=== PATIENT | male | born 1970 | race Caucasian/White ===

== ENCOUNTER 2019-02-24 13:14 | Observation (INO) ==
[2019-02-24 13:45] LABS: Basophils # (auto) 0.01 K/uL (0-0.2); Basophils % (auto) 0.1 %; Eosinophils # (auto) 0.02 K/uL (0-0.5); Eosinophils % (auto) 0.2 %; Hematocrit (blood only) 40.9 % (42-52); Hemoglobin 14.8 g/dL (14.0-18.0); Immature Granulocytes # (auto) 0.04 K/uL (0.00-0.02); Immature Granulocytes % (auto) 0.5 %; Lymphocytes # (auto) 1.29 K/uL (1.2-3.4); Lymphocytes % (auto) 14.9 %; Mean Corpuscular Hgb Conc 36.2 g/dL (32-36); Mean Platelet Volume 10.8 fL (7.4-10.4); Monocytes # (auto) 0.56 K/uL (0.11-0.59); Monocytes % (auto) 6.5 %; Neutrophils # (auto) 6.75 K/uL (1.4-6.5); Neutrophils % (auto) 77.8 %; Platelet Count 150 K/uL (130-400); RDW Coefficient of Variation 13.8 % (11.5-14.5); RDW Standard Deviation 43.5 fL (36.4-46.3); White Blood Count 8.67 K/uL (4.8-10.8)
--- NOTE | 2019-02-24 14:06 | XRay Report ---
XR chest 1V portable HISTORY: Atypical Chest Pain COMPARISON: None. FINDINGS: The cardiac silhouette is mildly enlarged. No pleural effusions. No pneumothorax. Slightly elevated interstitial without focal consolidations to suggest pneumonia. No evidence for pulmonary ed payton. IMPRESSION: Mild cardiomegaly. Electronically signed by: Jay Colon M.D. 02/24/2019 2:05 PM
[2019-02-24 14:14] LABS: Alanine Aminotransferase 26 U/L (12-78); Albumin Level 4.2 gm/dl (3.4-5.0); Aspartate Aminotransferase 18 U/L (15-37); BUN Creatinine Ratio 12.8 (10-20); Blood Urea Nitrogen 12 mg/dl (7-18); Calcium 8.4 mg/dl (8.5-10.1); Carbon Dioxide 25 mmol/L (21-32); Chloride 109 mmol/L (98-107); Creatinine Clr Calc Pharmacy 89.9 ml/min; Est GFR (African American) 109.4; Est GFR (Non-African American) 94.4; Glucose 159 mg/dl (70-99); Potassium 3.9 mmol/L (3.5-5.1); Sodium 141 mmol/L (136-145)
[2019-02-24 14:25] LABS: Albumin Globulin Ratio 1.4 (0.9-2); Alkaline Phosphatase 95 U/L (45-117); Bilirubin,Total 0.6 mg/dl (0.2-1); Total Protein 7.2 gm/dl (6.4-8.2); Troponin I < 0.015 ng/ml (0-0.045)
--- NOTE | 2019-02-24 15:46 | History & Physical Report ---
Date of Service February 24, 2019 Assessment & Plan (1) Atrial fibrillation: Patient is dizziness was found to be in atrial fibrillation controlled ventricular rate. His youth and lack of health problems does not place him as significant Aris vas risk score. We will bring him into the hospital monitored setting check a urine tox screen echocardiogram for structural cardiac abnormalities check a few troponins when this evening went in the morning and have PRN metoprolol available for rate control. We will check a d-dimer if elevated will perform a CT angiogram to rule out pulmonary embolism giving his pleuritic chest pain Urine tox screen is pending (2) Abnormal EKG: Patient is abnormal EKG could be related to his atrial fibrillation we will trend troponins and get an echo as mentioned (3) Hypothyroidism: Patient be maintained on his Synthroid dose TSH is in normal range (4) DVT prophylaxis: Lovenox will be used History of Present Illness Primary Care Provider: ROMAN Romo 48-year-old incarcerated prisoner who presents with feelings of dizziness and lightheadedness and was found to have atrial fibrillation with controlled ventricular response which converted spontaneously converted in the emergency department. Patient says over the last few days he had intermittent bouts of this dizzy feeling lasting 10 to 20 minutes usually relieved by eating but today he occurred while he was at dinner and did not remit with eating [facility] he had a rapid rate of his pulse was sent to the ER found to be in A. fib with spontaneous conversion. Subsequent to the conversion there are some mild lateral EKG changes with inverted T waves in V3 through V6. 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 His thyroid medicine dose has not been changed recently his TSH is therapeutic on presentation and he denies having any other illicit street drugs or stimulants. He says he only has a few drinks of caffeine a day and does not recall ever been told he had this problem before Allergies Allergy/AdvReac Type Severity Reaction Status Date / Time No Known Allergies Allergy Unverified 02/24/19 14:28 Home Medications Home Medications Medication Instructions Recorded Confirmed Type levothyroxine 150 mcg PO QAM 02/24/19 02/24/19 History omeprazole 20 mg PO DIRECTED PRN 02/24/19 02/24/19 History Past Med/Surg History Medical History Hypothyroidism Family History Other No significant family history Social History Current Living Situation: Other Current Living Situation Comment: [facility] current occupational status: other current occupation: Prisoner Feels Safe at Home: Yes Smoking Status: Former smoker Review of Systems Review of Systems: ROS: well nourished well developed. No double vision blurry vision even when he had associated dizziness No problems with speech or swallowing Patient cannot sense his atrial fibrillation he does have some pleuritic chest pain on the left side right now No Wheezing or breathing issues No abdominal pain nausea vomiting diarrhea changes in appetite or weight No burning urine urine frequency or changes in color No focal joint pain or muscle pain No skin rashes or oral lesions No unusual bruising or bleeding No focused back pain or numbness or loss of strength No changes in memory or confusion Physical Exam Physical Exam: The patient appeared well nourished and normally developed. Vital signs as documented. Head exam is unremarkable. normocephalic, atraumatic Neck is without jugular venous distension, thyromegaly, or lymphademopathy Lungs are clear to auscultation and percussion. Cardiac exam reveals Rhythm is regular. No murmurs are heard Abdominal exam reveals normal bowel sounds, no masses, no organomegaly Extremities are nonedematous and both pedal pulses are present Neurologic exam is A&Ox3, no focal deficits, strength is equal bilateral Psychologically seems neither anxious or depressed Skin is warm Dry without bruises or lesions Results & Data Vital Signs (Past 12 Hours) Vital Signs Temp Pulse Pulse Resp BP BP Pulse Ox 02/24/19 15:08 88 20 160/80 H 98 02/24/19 13:32 98 02/24/19 13:22 36.5 C 88 16 165/86 H 97 2 EKGs 1 with atrial fibrillation controlled ventricular rate 1 with sinus rhythm, with lateral T wave changes chest x-ray unremarkable PG Care Time/CCT Total # of Minutes Spent Total Time Spent with Patient: Total time spent is greater than 50% in coordination of care (as documented) at patient's floor/unit and/or counseling patient:
[2019-02-24 16:18] LABS: D Dimer 330 ug/L FEU (0-500)
[2019-02-24] MEDS ORDERED: NITROGLYCERIN SL 0.4 MG/TAB TAB SL PRN (16:18)
[2019-02-24] MEDS ORDERED: PANTOprazole 40 MG TAB PO PRN (16:18)
[2019-02-24] MEDS ORDERED: ACETAMINOPHEN 325 MG TAB PO PRN (16:18)
[2019-02-24] MEDS ORDERED: LORazepam 0.5 MG/1 ML VIAL IV PRN (16:18)
[2019-02-24] MEDS ORDERED: ONDANSETRON INJ 2 MG/ML 2 ML VIAL IV PRN (16:18)
[2019-02-24] MEDS ORDERED: MoRPHine SULFATE 2 MG/ML CARP IV PRN (16:18)
[2019-02-24] MEDS ORDERED: METOPROLOL TARTRATE 1 MG/ML VIAL IV PRN (16:18)
[2019-02-24 16:35] LABS: Prothrombin Time 10.7 Seconds (9.0-12.0)
[2019-02-24 16:45] LABS: Magnesium 2.2 mg/dl (1.8-2.4)
--- NOTE | 2019-02-24 17:59 | Emergency Department Note ---
Entered by Arelis Pinto acting as a scribe for History of Present Illness General Chief complaint: Cardiac Assessment Time Seen by Provider: 02/24/19 13:15 Source: patient History of Present Illness Onset (ago): hour(s) 2 Location: head and chest Pain Consistency: + other (episode) Quality: + other (cardiac assessment) Relieved By: + none; not by eating Exacerbated By: + none Associated symptoms: + denies other symptoms (room spinning, diarrhea), + cough and + other (dizziness, palpitations, foot cramping); no chest pain, no diaphoresis, no nausea/vomiting and no shortness of breath The patient is a 48 year old male who presents to the Emergency Room for an episode of a cardiac assessment. The patient states that this morning he was sitting in his cell watching TV before lunch when he started to feel dizzy. He notes that this was 2 hours ago. He reports that it felt like he was going to pass out. He states that he has had this happen 3 times before and each time when he ate, it went away after 10-20 minutes. He reports that he tried eating peanuts and a pop tart, but it offered no relief. He reports that he still went and tried to eat lunch, but he still felt dizzy. The patient states that at this time he decided to go to medical as this is the worst it has ever been. He reports that when he got there they noticed that he was in atrial fibrillation. He notes that he has not history of this. He states that he noticed at this time that his heart felt like it was beating funny. The patient complains of cough and foot cramping when he is in the shower. The patient denies diaphoresis, chest pain, the room spinning, anything making it better or worse, nausea, vomiting, diarrhea, missing any medications, a history of diabetes, a history of hypertension, a history of hyperlipidemia, a history of smoking, using drugs, using alcohol, and ever having the palpitations with prior episodes. He does admit to some exertional shortness of breath intermittently for the past week to 2. Home Medications Home Medications Medication Instructions Recorded Confirmed Type levothyroxine 150 mcg PO QAM 02/24/19 02/24/19 History omeprazole 20 mg PO DIRECTED PRN 02/24/19 02/24/19 History Allergies Allergy/AdvReac Type Severity Reaction Status Date / Time No Known Allergies Allergy Unverified 02/24/19 14:28 Past Med/Surg History Family History Other No significant family history Social History Preferred Language: [place]se Communication Ability: Effective Chinese Language Professor Required: No Beliefs That Will Affect Care: None Current Living Situation: Other Current Living Situation Comment: [facility] current occupational status: other current occupation: Prisoner Other Information That Helps Us Care for You: No Feels Safe at Home: Yes Safety Concerns: Feels Safe At This Time Smoking Status: Never smoker Hx Alcohol Use: No Hx Substance Use: No Review of Systems See HPI for pertinent positives & negatives. and A total of 10 systems reviewed and were otherwise negative Physical Exam Vital Signs Vital Signs - 24 hr 02/24/19 13:22 02/24/19 13:32 02/24/19 15:08 Temperature 36.5 C Temperature Source Oral Sepsis Recent Fever Within 48 Hours No Sepsis New/Unexplained Change in Mental Status No Sepsis Action Taken by Nursing No Action Required Pulse Rate 88 Pulse Rate [Finger] 88 Pulse Rhythm Irregular Pulse Rhythm [Finger] Regular Pulse Strength Normal Pulse Strength [Finger] Normal Respiratory Rate 16 20 Respiratory Effort / Characteristics Non-Labored Spontaneous Non-Labored Respiratory Depth Normal Normal Respiratory Pattern Regular Regular Blood Pressure 165/86 H Blood Pressure [Right Arm] 160/80 H Blood Pressure Mean 112 Blood Pressure Mean [Right Arm] 106 Blood Pressure Position Lying Blood Pressure Position [Right Arm] Sitting Pulse Oximetry 97 98 98 Oxygen Delivery Method Room Air Room Air Room Air GENERAL: sitting up in bed, nasal cannula in place, nontoxic EYE EXAM: normal conjunctiva OROPHARYNX: no exudate, no erythema, lips, buccal mucosa, and tongue normal and mucous membranes are moist NECK: supple, no nuchal rigidity, no adenopathy, non-tender LUNGS: Clear to auscultation. Normal chest wall mechanics HEART: Irregularly irregular, no murmurs. ABDOMEN: abdomen soft, non-tender, normo-active bowel sounds, no masses, no rebound or guarding. BACK: Back is symmetrical on inspection and there is no deformity, no midline tenderness, no CVA tenderness. SKIN: no rashes and no bruising UPPER EXTREMITIES: upper extremities are grossly normal. LOWER EXTREMITIES: No pitting edema. Calves equal bilaterally. Left leg is shackled. NEURO EXAM: Normal sensorium, cranial nerves II-XII intact, normal speech, no weakness of arms, no weakness of legs. No drift. Finger to nose intact. Gross sensation intact. Course ED COURSE: Vital signs were reviewed and showed situational hypertension. The patients medical record was reviewed The above diagnostic studies were performed and reviewed. ED treatments and interventions as stated above. 1318: The patient was evaluated in room B11B. A complete history and physical examination was performed. 1434: I discussed the patient's case with Dr. Zayda Cornell. He recommends brining the patient in for further evaluation. 1440: I reevaluated the patient and he is doing well. 1519: Upon reevaluation, the patient is resting comfortably. I discussed my findings with the patient and he understands and agrees with the treatment plan. Based on the patients age, coexisting illnesses, exam and lab findings the decision to treat as an inpatient was made. The patient remained stable while under my care. The patient will be evaluated for further management. 1521: I discussed the patient's case with Dr. Ignacio VIVAS Hospitalist. He will evaluate the patient for further management. Consultations Consultation #1: I discussed the patient's case with Dr. Zayda Cornell. He recommends brining the patient in for further evaluation. Time: 14:34 Consultation #2: I discussed the patient's case with Dr. Ignacio VIVAS Hospitalist. He will evaluate the patient for further management. Time: 15:21 Medical Decision Making Differential Diagnosis Differential diagnosis includes etiologies such as benign positional vertigo, dehydration, hypovolemia, anemia, tumor, infection, hypoglycemia, electrolyte abnormalities, cardiac sources, intracerebral event, toxicologic, neurologic, as well as others were entertained. Medical Records Attestation: I reviewed the patient's medical records. Home Medications Current Medication List: was personally reviewed by me Laboratory Data Attestation: I reviewed the patient's lab results. Result diagrams: 02/24/19 13:28 02/24/19 13:28 Lab Results 02/24/19 02/24/19 02/24/19 Range/Units 13:28 13:28 13:28 WBC 8.67 (4.8-10.8) K/uL RBC 4.70 (4.7-6.1) M/uL Hgb 14.8 (14.0-18.0) g/dL Hct 40.9 L (42-52) % MCV 87.0 (80-100) fL MCH 31.5 (25-34) pg MCHC 36.2 H (32-36) g/dL RDW Std Deviation 43.5 (36.4-46.3) fL RDW Coeff of Alex 13.8 (11.5-14.5) % Plt Count 150 (130-400) K/uL MPV 10.8 H (7.4-10.4) fL Immature Gran % (Auto) 0.5 % Neut % (Auto) 77.8 % Lymph % (Auto) 14.9 % [place] % (Auto) 6.5 % Eos % (Auto) 0.2 % Baso % (Auto) 0.1 % Immature Gran # (Auto) 0.04 H (0.00-0.02) K/uL Neut # (Auto) 6.75 H (1.4-6.5) K/uL Lymph # (Auto) 1.29 (1.2-3.4) K/uL [place] # (Auto) 0.56 (0.11-0.59) K/uL Eos # (Auto) 0.02 (0-0.5) K/uL Baso # (Auto) 0.01 (0-0.2) K/uL PT (9.0-12.0) Seconds INR (0.9-1.1) D-Dimer 330 (0-500) ug/L FEU Sodium 141 (136-145) mmol/L Potassium 3.9 (3.5-5.1) mmol/L Chloride 109 H (98-107) mmol/L Carbon Dioxide 25 (21-32) mmol/L Anion Gap 7.0 (3-11) BUN 12 (7-18) mg/dl Creatinine 0.96 (0.6-1.4) mg/dl Est Cr Clr Drug Dosing 89.9 ml/min Est GFR ( Amer) 109.4 Est GFR (Non-Af Amer) 94.4 BUN/Creatinine Ratio 12.8 (10-20) Glucose 159 H (70-99) mg/dl Calcium 8.4 L (8.5-10.1) mg/dl Magnesium 2.2 (1.8-2.4) mg/dl Total Bilirubin 0.6 (0.2-1) mg/dl AST 18 (15-37) U/L ALT 26 (12-78) U/L Alkaline Phosphatase 95 (45-117) U/L Troponin I < 0.015 (0-0.045) ng/ml Total Protein 7.2 (6.4-8.2) gm/dl Albumin 4.2 (3.4-5.0) gm/dl Globulin 3.0 (2.5-4.0) gm/dl Albumin/Globulin Ratio 1.4 (0.9-2) Lipase 198 (73-393) U/L TSH 2.110 (0.300-4.500) uIu/ml 02/24/19 Range/Units 13:28 WBC (4.8-10.8) K/uL RBC (4.7-6.1) M/uL Hgb (14.0-18.0) g/dL Hct (42-52) % MCV (80-100) fL MCH (25-34) pg MCHC (32-36) g/dL RDW Std Deviation (36.4-46.3) fL RDW Coeff of Alex (11.5-14.5) % Plt Count (130-400) K/uL MPV (7.4-10.4) fL Immature Gran % (Auto) % Neut % (Auto) % Lymph % (Auto) % [place] % (Auto) % Eos % (Auto) % Baso % (Auto) % Immature Gran # (Auto) (0.00-0.02) K/uL Neut # (Auto) (1.4-6.5) K/uL Lymph # (Auto) (1.2-3.4) K/uL [place] # (Auto) (0.11-0.59) K/uL Eos # (Auto) (0-0.5) K/uL Baso # (Auto) (0-0.2) K/uL PT 10.7 (9.0-12.0) Seconds INR 1.0 (0.9-1.1) D-Dimer (0-500) ug/L FEU Sodium (136-145) mmol/L Potassium (3.5-5.1) mmol/L Chloride (98-107) mmol/L Carbon Dioxide (21-32) mmol/L Anion Gap (3-11) BUN (7-18) mg/dl Creatinine (0.6-1.4) mg/dl Est Cr Clr Drug Dosing ml/min Est GFR ( Amer) Est GFR (Non-Af Amer) BUN/Creatinine Ratio (10-20) Glucose (70-99) mg/dl Calcium (8.5-10.1) mg/dl Magnesium (1.8-2.4) mg/dl Total Bilirubin (0.2-1) mg/dl AST (15-37) U/L ALT (12-78) U/L Alkaline Phosphatase (45-117) U/L Troponin I (0-0.045) ng/ml Total Protein (6.4-8.2) gm/dl Albumin (3.4-5.0) gm/dl Globulin (2.5-4.0) gm/dl Albumin/Globulin Ratio (0.9-2) Lipase (73-393) U/L TSH (0.300-4.500) uIu/ml Imaging Data Radiologist's Impression: Radiology results as stated below per my review and the radiologist's interpretation: XR chest 1V portable HISTORY: Atypical Chest Pain COMPARISON: None. FINDINGS: The cardiac silhouette is mildly enlarged. No pleural effusions. No pneumothorax. Slightly elevated interstitial without focal consolidations to suggest pneumonia. No evidence for pulmonary edema. IMPRESSION: Mild cardiomegaly. Electronically signed by: Jay Colon M.D. 02/24/2019 2:05 PM ECG Data Attestation: I personally reviewed and interpreted this ECG as follows: Indication: palpitations Rate (beats per minute): 80 Rhythm: atrial flutter Findings: + other (variable block, normal axis) and + nonspecific-ST abn (anterolateral) Additional Comments: REPEAT EKG: Sinus rhythm at a rate of 81. Normal axis. TWI in anterolateral with ST depressions in the anterolateral. Blood Pressure Blood Pressure Findings: Elevated blood pressure Blood Pressure Disposition: elevated BP felt to be situational MDM Narrative Patient is a 48-year-old male who comes from [facility] for dizziness and lightheadedness which has been present for the past several hours. Patient was evaluated in the infirmary and found to be in A. fib. He was transferred over here. He has never had this before. He does have a past medical history of thyroid disorders. Chart was reviewed here but no previous visits. Vitals show mild hypertension. IV was established blood work was obtained and showed no significant leukocytosis or anemia. D-dimer was negative. BMP along with LFTs bilirubin troponin TSH was unremarkable. Lipase is normal. Chest x-ray was unremarkable. EKG initially showed A. fib with ST wave changes in the lateral leads. Repeat EKG with patient converting into a sinus rhythm. T waves were still abnormal in the lateral leads. Patient was given IV fluids. He was monitored closely. Did discuss with the hospitalist in regards to observation due to the ST wave changes with no previous to compare as he has some shortness of breath with exertion intermittently over the course of the last week to 2 weeks. Discussed with Pt concerning signs and symptoms to watch out for. Pt was instructed to follow up with their PCP and discussed with the patient their option to return to the ED at anytime for persistent or worsening symptoms. The appropriate anticipatory guidance and out-patient management, including indications for return to the emergency department, were explained at length to the patient and understood. Impression & Plan Atrial fibrillation with RVR, Abnormal ECG, Shortness of breath, Lightheade dness Discharge Plan Visit Data *Final* Discharge Date/Time: 02/24/19 15:47 Chief Complaint: Cardiac Assessment ED Provider: Juan Segovia Discharge Problem: Atrial fibrillation with RVR, Abnormal ECG, Shortness of breath, Lightheadedness Patient Disposition: Admitted As Inpatient Discharge Instructions Interventions: ED Discharge Assessment Last Done: 02/24/19 15:47 The papitoibharry's documentation has been prepared under my direction and personally reviewed by me in its entirety. I confirm that the note above accurately reflects all work, treatment, procedures, and medical decision making performed by me.
[2019-02-24 22:24] LABS: Amphetamines+Metham, Urine Neg (Neg); Barbiturates, Urine Neg (Neg); Benzodiazepine, Urine Neg (Neg); Cocaine, Urine Neg (Neg); MDMA (Ecstacy), Urine Neg (Neg); Methadone, Urine Neg (Neg); Opiate, Urine Neg (Neg); Phencyclidine, Urine Neg (Neg)
[2019-02-25] MEDS ORDERED: LEVOTHYROXINE SODIUM 150 MCG TABLET PO SCH (06:30)
[2019-02-25] MEDS ORDERED: ASPIRIN 81 MG ECTAB PO SCH (09:00)
[2019-02-25] MEDS ORDERED: ENOXAPARIN INJ 40 MG/0.4 ML SYR SQ SCH (09:00)
[2019-02-25 09:37] LABS: Hematocrit (blood only) 40.1 % (42-52); Hemoglobin 14.5 g/dL (14.0-18.0); Mean Corpuscular Hgb Conc 36.2 g/dL (32-36); Mean Corpuscular Volume 87.4 fL (80-100); Mean Platelet Volume 9.8 fL (7.4-10.4); Platelet Count 140 K/uL (130-400); RDW Coefficient of Variation 13.9 % (11.5-14.5); RDW Standard Deviation 44.4 fL (36.4-46.3); Red Blood Count 4.59 M/uL (4.7-6.1); White Blood Count 6.41 K/uL (4.8-10.8)
[2019-02-25 10:01] LABS: BUN Creatinine Ratio 11.2 (10-20); Calcium 9.1 mg/dl (8.5-10.1); Creatinine Clr Calc Pharmacy 92.1 ml/min; Est GFR (African American) 97.1; Est GFR (Non-African American) 83.8
[2019-02-25] MEDS ORDERED: METOPROLOL SUCC 25MG EXT REL TAB PO SCH (11:45)
--- NOTE | 2019-02-25 15:18 | Consultation Report ---
DATE OF CONSULTATION: 02/25/2019 REQUESTING PHYSICIAN: Dr. Crystal Wilkinson REASON FOR CONSULTATION: Symptomatic paroxysmal atrial fibrillation. LAB ANIMAL TECHNICIAN: Nazario Sauceda DO, [facility]. Dear Dr. Rojas: Thank you for requesting cardiology consultation on Stanislav with regards to his symptomatic atrial fibrillation. Yesterday, he noted lightheadedness and dizziness. He was found to be in atrial fibrillation with a controlled ventricular response. He remained in atrial fibrillation in the hospital this morning, at approximately 7:30, he converted back to sinus rhythm. He notes in retrospect, he has had lightheadedness and dizziness at times and he also at times when walking has felt quite fatigued. This would come and go intermittently, normally he can walk 400 yards to the mess [place] without any difficulty and he can climb a flight of stairs without any difficulty. He is unaware of any fluttering or skips. He denies any presyncope or syncope. He denies any lower extremity edema, symptoms of claudication. He has had issues of hypothyroidism, but has been reasonably well controlled. He denies any chest tightness or chest pressure with activity. He denies a cough, fevers, chills, sweats, bleeding, bruising, dark stools, black stools. Rest of review of systems is otherwise negative. PAST MEDICAL HISTORY: 1. Symptomatic paroxysmal atrial fibrillation with a CHADS2-VASc score of 0. 2. Hypothyroidism. 3. Normal biventricular size and function with moderate left ventricular hypertrophy (wall thickness 1.5 cm). 4. Normal RV size and function. 5. Normal biatrial size. 6. GERD. SOCIAL HISTORY: He is a prisoner at [facility]. He denies any tobacco, alcohol or drugs. FAMILY HISTORY: Noncontributory. ALLERGIES: No known drug allergies. OUTPATIENT MEDICATIONS: Synthroid 150 mcg daily, omeprazole 20 mg as needed. PHYSICAL EXAMINATION: GENERAL: He is awake, alert and oriented x3. He is in no acute distress. He is a well-appearing male, looks his stated age. VITAL SIGNS: His heart rate is 86, blood pressure 106/73, respirations 20, sat 95% on room air. HEENT: 2+ carotid upstrokes, no evidence of carotid bruits. Jugular venous pressure appeared normal. Sclerae is anicteric. Hearing is normal. LUNGS: Clear to auscultation bilaterally. No rales, rhonchi or wheezing. HEART: Regular rate and rhythm. No appreciable murmurs, rubs or gallops. ABDOMEN: Soft, nontender, nondistended. Positive bowel sounds. EXTREMITIES: No clubbing, cyanosis or edema. PSYCHIATRIC: His affect appeared appropriate. DIAGNOSTIC STUDIES: His urine drug screen is negative. His troponins are negative x3. His BMP is normal. Chest x-ray, mild cardiomegaly. EKG yesterday at 1508, sinus rhythm, nonspecific T-wave changes in the lateral leads. EKG on admission, atrial fibrillation with a controlled ventricular response, nonspecific ST-T changes. IMPRESSION: 1. Symptomatic paroxysmal atrial fibrillation with lightheadedness, dizziness and fatigue. 2. CHADS2-VASc score of 0. 3. Normal biventricular size and function with moderate left ventricular hypertrophy. 4. Normal biatrial size. As was discussed with the primary service, he is back in sinus rhythm. He did not have a pause when he converted. I would start low-dose Toprol 12.5 mg daily. This can be increased as his heart rate and blood pressure allow. As long as his heart rate is greater than 50 beats per minute while awake and he feels okay, this is acceptable. Even if his heart rate with sleep goes into the 40s, I would not be concerned. There is some debate as to whether he should even be on aspirin with a CHADS2-VASc score of 0 and at this point he can stay off aspirin. His TSH is normal. There is nothing to suggest that he has hyperthyroid. He denies any signs or symptoms of sleep apnea. My hope is with low-dose beta blockers, we can suppress his atrial arrhythmias, if not, at that point we would need to consider antiarrhythmic therapy. The challenge is: what is the best medicine to give him given his relative bradycardia. we may need to repeat a limited outpatient echo to reassess his LV wall thickness. With his current wall thickness if this is real, he cannot be on flecainide. That would leave us Multaq, but Multaq can cause bradycardia. Tikosyn would require 3 days in the hospital and he is too young to receive amiodarone. [facility] can go back to [facility] from my standpoint. If [facility] has any questions in the future, they can contact us. KATERINE
--- NOTE | 2019-02-25 16:14 | Discharge Summary ---
Date of Service February 25, 2019 Admission HPI Per Admitting Provider 48-year-old incarcerated prisoner who presents with feelings of dizziness and lightheadedness and was found to have atrial fibrillation with controlled ventricular response which converted spontaneously converted in the emergency department. Patient says over the last few days he had intermittent bouts of this dizzy feeling lasting 10 to 20 minutes usually relieved by eating but today he occurred while he was at dinner and did not remit with eating presented to the [facility] where he had a rapid rate of his pulse was sent to the ER found to be in A. fib with spontaneous conversion. Subsequent to the conversion there are some mild lateral EKG changes with inverted T waves in V3 through V6. Patient currently has some left sub-breast pleuritic pain Patient is active at the assisted where he has a job [employer] he has not noticed any discomfort associate with exertion he has not had any increased dyspnea on exertion or decreased exercise tolerance no recent any lower extremity swelling. His thyroid medicine dose has not been changed recently his TSH is therapeutic on presentation and he denies having any other illicit street drugs or stimulants. He says he only has a few drinks of caffeine a day and does not recall ever been told he had this problem before Admission Exam Per Admitting Provider The patient appeared well nourished and normally developed. Vital signs as documented. Head exam is unremarkable. normocephalic, atraumatic Neck is without jugular venous distension, thyromegaly, or lymphademopathy Lungs are clear to auscultation and percussion. Cardiac exam reveals Rhythm is regular. No murmurs are heard Abdominal exam reveals normal bowel sounds, no masses, no organomegaly Extremities are nonedematous and both pedal pulses are present Neurologic exam is A&Ox3, no focal deficits, strength is equal bilateral Psychologically seems neither anxious or depressed Skin is warm Dry without bruises or lesions Principal Diagnosis Paroxysmal Atrial Fibrillation Discharge Exam General: Resting comfortably HEENT: NC/AT; PERRLA with EOMI; [place] conjunctiva, MMM. No erythema of posterior pharynx Neck: Supple and nontender Cardiac: RRR Lungs: CTA bilaterally Abdomen: Bowel normoactive X 4; Nontender to palpation Extremities: Warm. No edema present Neuro: No focal weakness Skin: No rash Discharge Data Allergies Allergy/AdvReac Type Severity Reaction Status Date / Time No Known Allergies Allergy Unverified 02/24/19 14:28 Consultations 02/24/19 15:22 ED Decision to Admit Stat 02/25/19 10:45 Consult Cardiology Routine Ordered Studies CXR 02/24/19 Hospital Course (1) Atrial fibrillation: Presented with dizziness; in A. fib with RVR on EKG at admission. Aris vasc score was 0; no indication for anticoagulation. Did receive Aspirin 81 mg daily during admission. family practitioner showed A. fib overnight, HR fluctuating but as low as 40's. He converted to NSR on 02/25/19 at 07:30. Urine tox screen negative. Echo showed preserved EF, grade I diastolic dysfunction. EKG with NSR; Trop negative x 3. D-dimer was negative; no indication for CTA. Pt. remained in NSR throughout the course of the day on 02/25/19. Started Met oprolol XL 12.5 mg daily; tolerated dose well. Will need to f/u with PCP and Cardiology; etiology of A. fib is unknown. (2) Pneumonia: Concern for Mycoplasma PNA on CXR; also has cough and reported fevers at home. Will start Z-marko -- received Azithromycin 500 mg x 1 dose prior to discharge. Will need 250 mg x 4 days. (3) Abnormal EKG: Cardiac work up as noted above. (4) Hypothyroidism: Continued Synthroid as prescribed. TSH was 2.11 (5) DVT prophylaxis: Lovenox subQ daily. Pt was stable for discharge back to [facility] on 02/25/19. Total Time Total Time Spent Total Time Spent (In Minutes): >30 minutes Total Time Includes: Examination of the Patient, Discharge Planning, Medication Reconciliation, Communication With Other Providers and Other Discharge Plan Discharge Items Patient Disposition: [facility] Reason For Visit: ATRIAL FIBRILLATION Discharge Diagnosis: Paroxysmal A. Fib Condition: Good Discharge Goals: Decrease discomfort, Improve disease control, Improve function, Increase independence, Improve nutritional status and Prevent disease Activity: As commented below Exercise/Sports: Gradually increase as tolerated Non-emergency contact: Primary Care Provider and Dental Tech Call non-emergency contact if: you have any medication questions, your symptoms worsen, your pain is not controlled, your pain is worsening, your pain is unusual for you, your pain is concerning for you and you have a fever Follow-up/Referrals: Clarissa OWENS [Primary Care Provider] - Diet: Regular Addtl Provider Instructions: 1. Paroxysmal A. fib (with RVR) * Metoprolol XL 12.5 mg daily has been started for rate control. * No indication for anticoagulation therapy or Aspirin 81 mg daily per cardiology. * Drink plenty of fluids to avoid dehydration. * Please schedule a follow up with PCP in 1-2 weeks. * Please schedule a follow up with cardiology in 2-3 weeks. 2. Pneumonia * Please take a Z-marko -- pt. will need 250 mg daily x 4 days (02/26 - 03/01). He received a 500 mg dose prior to discharge. Prescriptions: New azithromycin 250 mg tablet 250 mg PO DAILY Qty: 6 RF: 0 Continued levothyroxine 150 mcg Tablet 150 mcg PO QAM RF: 0 omeprazole 20 mg Tablet,Delayed Release (Dr/Ec) 20 mg PO DIRECTED PRN (Reason: Heartburn) RF: 0 Stand-Alone Forms: My [facility] Admission Data Admit Date/Time: 02/24/19 15:24 Attending Provider: Sloane Cunha Admit Provider: Justin Winter Primary Care Provider: Clarissa OWENS Other Providers: Nazario Sauceda Service: Telemetry Other Interventions: Discharge Summary Assessment (RN) Last Done: 02/25/19 16:50 Pending Studies at Discharge: No DC Date/Time DO NOT enter until pt leaves facility: 02/25/19 18:50 Supervising Physician Co-Signing Physician Notes PA Supervision Note: I personally saw and examined the patient. I verified all fajardo points and agree with ASHER Austin with the following exceptions and/or additions: Pt denies any further lightheadedness or palpitations, remains in NSR since conversion spontaneously. Started TOprol XL and rates were acceptable. Continues ot have productive cough and reports chills last week prior to onset of cough. Reviewed CXR and appears to have insterstitial thickening, could be walking PNA- treat with azithro Afib treatment outlined above, unclear etiolgoy, perhaps the recent pulm illness exacerbated this? Still quite young, no +FH, no structural heart disease -f/u with Cardiology for repeat limited ECHO for LVH Stable for dc to home VSS RRR no mgr Lungs with crackles at lower and middle lung bergeron bilat, improved with cough Abd soft NT ND Ext no edema
[2019-02-25] MEDS ORDERED: AZITHROMYCIN 250 MG TAB PO ONE (16:20)
== END 2019-02-25 18:50 ==
LOC: 2S 13:14 → ED 13:14 → SUATTDRO 15:24 → 2S 15:47
DX: Z79.899 Other long term (current) drug therapy; I48.0 Paroxysmal atrial fibrillation; J18.9 Pneumonia, unspecified organism; K21.9 Gastro-esophageal reflux disease without esophagitis; E03.9 Hypothyroidism, unspecified; R94.31 Abnormal electrocardiogram [ECG] [EKG]